=== PATIENT | female | born 2000 | race Caucasian/White ===

== ENCOUNTER 2022-08-17 21:47 | Emergency (ER) | payer OTHER ==
[2022-08-17] MEDS ORDERED: SODIUM CHLORIDE 0.9% 1,000 ML IV STA (22:11)
[2022-08-17] MEDS ORDERED: ONDANSETRON 4 MG/2 ML VIAL IVP STA (22:11)
[2022-08-17] MEDS: SODIUM CHLORIDE 0.9% 1,000 ML IV ONE ×2 (22:19→22:52)
[2022-08-17 22:29] VITALS: TEMP 99.1
--- NOTE | 2022-08-17 22:29 | ED ---
General Adult HPI - General Chief complaint: Nausea/Vomiting/Diarrhea Stated complaint: 6 weeks with nausea Time Seen by Provider: 08/17/22 21:57 Source: patient Mode of arrival: ambulatory Limitations: no limitations - History of Present Illness Initial comments: Patient is a 21-year-old female currently 6 weeks presenting with chief complaint of nausea. Patient states that she has had constant nausea for several days. She denies any pelvic pain or vaginal bleeding. No dysuria or hematuria. No fevers or chills. - Related Data Previous Rx's Medication Instructions Recorded Ondansetron Odt [Zofran Odt] 4 mg PO Q8HR PRN #30 tab 08/17/22 Allergies Allergy/AdvReac Type Severity Reaction Status Date / Time No Known Allergies Allergy Verified 08/17/22 21:55 Review of Systems ROS Statement: Those systems with pertinent positive or pertinent negative responses have been documented in the HPI. ROS Other: All systems not noted in ROS Statement are negative. Past Medical History Additional Past Medical History / Comment(s): IBS History of Any Multi-Drug Resistant Organisms: None Reported Past Surgical History: No Surgical Hx Reported Past Psychological History: Anxiety, Depression, PTSD Smoking Status: Never smoker Past Alcohol Use History: None Reported Past Drug Use History: None Reported General Exam Limitations: no limitations General appearance: alert, in no apparent distress Head exam: Present: atraumatic, normocephalic, normal inspection Eye exam: Present: normal appearance, EOMI. Absent: scleral icterus, periorbital swelling Neck exam: Present: normal inspection, full ROM Respiratory exam: Present: normal lung sounds bilaterally. Absent: respiratory distress, wheezes, rales, rhonchi, stridor Cardiovascular Exam: Present: regular rate, normal rhythm, normal heart sounds. Absent: systolic murmur, diastolic murmur, rubs, gallop, clicks Neurological exam: Present: alert, oriented X3, CN II-XII intact Psychiatric exam: Present: normal affect, normal mood Skin exam: Present: warm, dry, intact, normal color. Absent: rash Course Vital Signs 08/17/22 08/17/22 08/17/22 21:53 22:25 23:40 Temperature 99.6 F 99.1 F Pulse Rate 84 84 80 Respiratory 18 18 16 Rate Blood Pressure 136/81 118/69 120/79 O2 Sat by Pulse 97 99 98 Oximetry Medical Decision Making - Medical Decision Making Was pt. sent in by a medical professional or institution (CYRUS Melendez, VEHICLE INSURANCE AGENT, urgent care, hospital, or [facility]...) When possible be specific @ -[No] Did you speak to anyone other than the patient for history (EMS, parent, family, police, friend...)? What history was obtained from this source @ -[No] Did you review nursing and triage notes (agree or disagree)? Why? @ -[I reviewed and agree with nursing and triage notes] Were old charts reviewed (outside hosp., previous admission, EMS record, old EKG, old radiological studies, urgent care reports/EKG's, [facility] records)? Report findings @ -[No old charts were reviewed] Differential Diagnosis (chest pain, altered mental status, abdominal pain women, abdominal pain men, vaginal bleeding, weakness, fever, dyspnea, syncope, headache, dizziness, GI bleed, back pain, seizure, CVA, palpatations, mental health, musculoskeletal)? @ -Differential includes nausea and vomiting in , cholelithiasis, UTI, appendicitis, this is not an all inclusive last EKG interpreted by me (3pts min.). @ -[As above] X-rays interpreted by me (1pt min.). @ -[None done] CT interpreted by me (1pt min.). @ -[None done] U/S interpreted by me (1pt. min.). @ -[None done] What testing was considered but not performed or refused? (CT, X-rays, U/S, labs)? Why? @ -[None] What meds were considered but not given or refused? Why? @ -[None] Did you discuss the management of the patient with other professionals (professionals i.e. CYRUS Melendez, VEHICLE INSURANCE AGENT, lab, RT, psych nurse, social science instructor, room service associate, teacher, branch officer, welfare case worker)? Give summary @ -[No] Was smoking cessation discussed for >3mins.? @ -[No] Was critical care preformed (if so, how long)? @ -[No] Were there social determinants of health that impacted care today? How? (Homelessness, low income, unemployed, alcoholism, drug addiction, transportation, low edu. Level, literacy, decrease access to med. care, half-way, rehab)? @ -[No] Was there de-escalation of care discussed even if they declined (Discuss DNR or withdrawal of care, Hospice)? DNR status @ -[No] What co-morbidities impacted this encounter? (DM, HTN, Smoking, COPD, CAD, Cancer, CVA, ARF, Chemo, Hep., AIDS, mental health diagnosis, sleep apnea, morbid obesity)? @ -[None] Was patient admitted / discharged? Hospital course, mention meds given and route, prescriptions, significant lab abnormalities, going to OR and other pertinent info. @ -21-year-old female currently 6 weeks presenting with chief complaint of nausea. Patient has had small amount of vomiting. No abdominal pain or vaginal bleeding. She is given Zofran and IV fluids. She reports improvement in her symptoms. Urine shows no evidence of infectious process, sent for culture. Follow-up with OB. Report back to ER with any new or worsening symptoms. Discussed return parameters and answered all questions. Patient conveyed verbal understanding and agreed to the plan. I discussed this case in detail with my attending Dr. Lopez Undiagnosed new problem with uncertain prognosis? @ -[No] Drug Therapy requiring intensive monitoring for toxicity (Heparin, Nitro, Insulin, Cardizem)? @ -[No] Were any procedures done? @ -[No] Diagnosis/symptom? @ -Nausea and vomiting in Acute, or Chronic, or Acute on Chronic? @ -Acute Uncomplicated (without systemic symptoms) or Complicated (systemic symptoms)? @ -Uncomplicated Side effects of treatment? @ -[No] Exacerbation, Progression, or Severe Exacerbation? @ -[No] Poses a threat to life or bodily function? How? (Chest pain, [place], [place], pneumonia, PE, COPD, DKA, ARF, appy, cholecystitis, CVA, Diverticulitis, Homicidal, Suicidal, threat to staff... and all critical care pts) @ -[No] - Lab Data Lab Results 08/17/22 Range/Units 22:15 Urine Color Light Yellow Urine Appearance Clear (Clear) Urine pH 6.5 (5.0-8.0) Ur Specific [place] 1.005 (1.001-1.035) Urine Protein Negative (Negative) Urine Glucose (UA) Negative (Negative) Urine Ketones Negative (Negative) Urine Blood Negative (Negative) Urine Nitrite Negative (Negative) Urine Bilirubin Negative (Negative) Urine Urobilinogen <2.0 (<2.0) mg/dL Ur Leukocyte Esterase Negative (Negative) Disposition Clinical Impression: Nausea/vomiting in Disposition: HOME SELF-CARE Condition: Good Instructions (If sedation given, give patient instructions): Nausea and Vomiting in (ED) Additional Instructions: Follow-up with MOLECULAR PHYSICIST. Report back to ER with any new or worsening symptoms. Take medication as prescribed. You may take [id number] Unisom and vitamin B6 to help treat your nausea. Do not take Unisom before driving or operating heavy machinery. Prescriptions: Ondansetron Odt [Zofran Odt] 4 mg PO Q8HR PRN #30 tab PRN Reason: Nausea Is patient prescribed a controlled substance at d/c from ED?: No Referrals: Dolly Randhawa MD [Primary Care Provider] - 1-2 days Edward Kam MD [STAFF PHYSICIAN] - 1-2 days Time of Disposition: 23:07
[2022-08-17 22:46] LABS: Appearance,Urine Clear (Clear); Bilirubin,Urine Negative (Negative); Blood,Urine Negative (Negative); Color,Urine Light Yellow; Glucose,Urine (UA) Negative (Negative); Ketones,Urine Negative (Negative); Leukocyte Esterase,Urine Negative (Negative); Nitrite,Urine Negative (Negative); PH, Urine 6.5 (5.0-8.0); Protein,Urine Negative (Negative); Specific Gravity,Urine 1.005 (1.001-1.035); Urobilinogen,Urine <2.0 mg/dL (<2.0)
[2022-08-17] MEDS ORDERED: METOCLOPRAMIDE 5 MG/ML 2 ML VIAL IVP STA (23:05)
[2022-08-18 00:16] VITALS: BP 120/79; PULSE 80; RESP 16
== END 2022-08-17 23:40 | disposition home or self-care (01) ==
LOC: EC 21:47
DX: O21.9 Vomiting of pregnancy, unspecified (principal); Z86.59 Personal history of other mental and behavioral disorders; Z3A.01 Less than 8 weeks gestation of pregnancy
CPT/HCPCS: 99284 ×2; 96374 ×2; 96375 ×2; 96361 ×3; 81003; J2765; J2405

== ENCOUNTER 2022-08-23 10:46 | Emergency (ER) | payer OTHER ==
[2022-08-23 11:03] VITALS: RESP 18; TEMP 98.6
[2022-08-23] MEDS ORDERED: diphenhydrAMINE 50 MG/ML 1 ML VIAL IVP STA (11:20)
[2022-08-23] MEDS ORDERED: PYRIDOXINE 100 MG/ML 1 ML VIAL IVP ONE (11:20)
[2022-08-23] MEDS ORDERED: ONDANSETRON 4 MG/2 ML VIAL IVP STA (11:20)
[2022-08-23] MEDS ORDERED: SODIUM CHLORIDE 0.9% 2,000 ML IV STA (11:20)
[2022-08-23 11:42] VITALS: BP 114/81; PULSE 114
[2022-08-23 11:48] LABS: Basophils # (A) 0.1 k/uL (0-0.2); Basophils % (A) 0 %; Eosinophils # (A) 0.2 k/uL (0-0.7); Eosinophils % (A) 1 %; HCT 47.5 % (34.0-46.0); HGB 15.9 gm/dL (11.4-16.0); Lymphocytes # (A) 1.8 k/uL (1.0-4.8); Lymphocytes % (A) 15 %; MCH 28.5 pg (25.0-35.0); MCHC 33.5 g/dL (31.0-37.0); MCV 85.1 fL (80.0-100.0); Mean Platelet Volume 8.2; Monocytes # (A) 0.5 k/uL (0-1.0); Monocytes % (A) 5 %; Neutrophils # (A) 9.3 k/uL (1.3-7.7); Neutrophils % (A) 78 %; Platelet Count 340 k/uL (150-450); RBC 5.59 m/uL (3.80-5.40); RDW 13.4 % (11.5-15.5); WBC 11.9 k/uL (4.0-11.0)
--- NOTE | 2022-08-23 11:52 | ED ---
Nausea/Vomiting/Diarrhea HPI - General Chief complaint: Nausea/Vomiting/Diarrhea Stated complaint: 7 WEEKS PREG, Nausea Time Seen by Provider: 08/23/22 11:09 Source: patient, RN notes reviewed Mode of arrival: ambulatory Limitations: no limitations - History of Present Illness Initial comments: This is a 21-year-old female who presents to the emergency department for nausea and vomiting in . Patient is and approximately 7 weeks . She was evaluated here 6 days ago for the same complaint. She was treated with Reglan and Zofran when she was here, which she states were only moderately effective. She was discharged with a prescription for Zofran, however she believes that she has gotten worse. She is unable to keep down water at this point despite taking the Zofran. Denies any abdominal pain or vaginal bleeding. She does not currently have an [facility]. Denies any fevers, chills, sore throat, cough, dyspnea, chest pain, palpitations, abdominal pain, diarrhea, back pain, or headaches. MD complaint: nausea, vomiting - Related Data Previous Rx's Medication Instructions Recorded Ondansetron Odt [Zofran Odt] 4 mg PO Q8HR PRN #30 tab 08/17/22 Doxylamine Succinate/Vit B6 1 each PO TID PRN #30 tab 08/23/22 [Doxylamine-Pyridoxine 10-10 mg] Metoclopramide [Reglan] 10 mg PO Q6H PRN #30 tab 08/23/22 Allergies Allergy/AdvReac Type Severity Reaction Status Date / Time No Known Allergies Allergy Verified 08/23/22 12:40 Review of Systems ROS Statement: Those systems with pertinent positive or pertinent negative responses have been documented in the HPI. ROS Other: All systems not noted in ROS Statement are negative. Past Medical History Additional Past Medical History / Comment(s): IBS History of Any Multi-Drug Resistant Organisms: None Reported Past Surgical History: No Surgical Hx Reported Past Psychological History: Anxiety, Depression, PTSD Smoking Status: Current every day smoker Past Alcohol Use History: None Reported Past Drug Use History: None Reported General Exam Limitations: no limitations General appearance: alert, in no apparent distress Head exam: Present: atraumatic, normocephalic, normal inspection Respiratory exam: Present: normal lung sounds bilaterally. Absent: respiratory distress, wheezes, rales, rhonchi, stridor Cardiovascular Exam: Present: regular rate, normal rhythm, normal heart sounds. Absent: systolic murmur, diastolic murmur, rubs, gallop, clicks Neurological exam: Present: alert, oriented X3, CN II-XII intact Psychiatric exam: Present: normal affect, normal mood Skin exam: Present: warm, dry, intact, normal color. Absent: rash Course Vital Signs 08/23/22 08/23/22 11:00 11:42 Temperature 98.6 F Pulse Rate 91 114 H Respiratory 18 18 Rate Blood Pressure 130/83 114/81 O2 Sat by Pulse 99 100 Oximetry Medical Decision Making - Medical Decision Making This is a 21-year-old female who presents to the emergency department for nausea and vomiting in . Was pt. sent in by a medical professional or institution? @ -No Did you speak to anyone other than the patient for history? @ -No Did you review nursing and triage notes? @ -Yes, and I agree, it is accurate with regards to the patient's symptoms. Were old charts reviewed? @ -No Differential Diagnosis? @ -Differential Nausea and Vomiting: Gastroenteritis, hyperemesis gravidarum, morning sickness, cholecystitis, appendicitis, pancreatitis, migraine, benign positional vertigo, food borne illness, pyelonephritis, irritable bowel syndrome, influenza, Covid, GERD, incarcerated hernia, intestinal obstruction, this is not meant to be an all- inclusive list. EKG interpreted by me (3pts min.)? @ -Not obtained X-rays interpreted by me (1pt min.)? @ -Not obtained CT interpreted by me (1pt min.)? @ -Not obtained U/S interpreted by me (1pt. min.)? @ -Not obtained What testing was considered but not performed? (CT, X-rays, U/S, labs)? Why? @ -None What meds were considered but not given? Why? @ -None Did you discuss the management of the patient with other professionals? @ -No Did you reconcile home meds? @ -No Was smoking cessation discussed for >3mins.? @ -No Was critical care preformed (if so, how long)? @ -No Were there social determinants of health that impacted care today? How? (Homelessness, low income, unemployed, alcoholism, drug addiction, transpo rtation, low edu. Level, literacy, decrease access to med. care, senior care, rehab)? @ -No Was there de-escalation of care discussed even if they declined? (Discuss DNR or withdrawal of care, Hospice)? @ -No What co-morbidities impacted this encounter? (DM, HTN, Smoking, COPD, CAD, Cancer, CVA, Hep., AIDS, mental health diagnosis, sleep apnea, morbid obesity)? @ - Was patient admitted / discharged? @ -Discharged. Lab work obtained and found to be nonactionable. Urinalysis negative for signs of infection. She was initially given a 2 L bolus of IV fluids, Zofran, Benadryl, and vitamin B6. She did feel much better overall, other than mild residual nausea. She was subsequently given a dose of Reglan. Afterwards, she was able to eat crackers and drink water without difficulty and felt stable for discharge home. She does still have Zofran at home. She was also given prescriptions for Reglan and Diclegis. Advised she start with the Diclegis, and if that is not effective, she can alternate with the Reglan and Zofran if needed. She is instructed to slowly advance her diet as tolerated and remain well-hydrated. We discussed that Reglan and Zofran are category B medications in , and the patient expresses understanding and wishes to proceed. Information for [facility] follow-up provided as well. Advised to contact them for ongoing obstetrical management. Undiagnosed new problem with uncertain prognosis? @ -None Drug Therapy requiring intensive monitoring for toxicity (Heparin, Nitro, Insulin, Cardizem)? @ -None Were any procedures done? @ -None Diagnosis/symptom? @ -Nausea and vomiting in Acute, or Chronic, or Acute on Chronic? @ -Acute Uncomplicated (without systemic symptoms) or Complicated (systemic symptoms)? @ -Uncomplicated Side effects of treatment? @ -None Exacerbation, Progression, or Severe Exacerbation] @ -Not applicable Poses a threat to life or bodily function? @ -No Return precautions reviewed in depth, the patient is instructed to return to the emergency department with any new, worsening, or concerning symptoms. Patient verbalized understanding. This case was discussed in detail with the attending ED physician, Dr. Upton. Presentation, findings, and treatment plan discussed in detail as well. - Lab Data Result diagrams: 08/23/22 11:37 08/23/22 11:37 Lab Results 08/23/22 08/23/22 08/23/22 Range/Units 11:37 11:37 11:37 WBC 11.9 H (4.0-11.0) k/uL RBC 5.59 H (3.80-5.40) m/uL Hgb 15.9 (11.4-16.0) gm/dL Hct 47.5 H (34.0-46.0) % MCV 85.1 (80.0-100.0) fL MCH 28.5 (25.0-35.0) pg MCHC 33.5 (31.0-37.0) g/dL RDW 13.4 (11.5-15.5) % Plt Count 340 (150-450) k/uL MPV 8.2 Neutrophils % 78 % Lymphocytes % 15 % Monocytes % 5 % Eosinophils % 1 % Basophils % 0 % Neutrophils # 9.3 H (1.3-7.7) k/uL Lymphocytes # 1.8 (1.0-4.8) k/uL Monocytes # 0.5 (0-1.0) k/uL Eosinophils # 0.2 (0-0.7) k/uL Basophils # 0.1 (0-0.2) k/uL Sodium 139 (137-145) mmol/L Potassium 3.9 (3.5-5.1) mmol/L Chloride 101 (98-107) mmol/L Carbon Dioxide 22 (22-30) mmol/L Anion Gap 16 mmol/L BUN 9 (7-17) mg/dL Creatinine 0.54 (0.52-1.04) mg/dL Est GFR (CKD-EPI)AfAm >90 (>60 ml/min/1.73 sqM) Est GFR (CKD-EPI)NonAf >90 (>60 ml/min/1.73 sqM) Glucose 96 (74-99) mg/dL Calcium 10.5 H (8.4-10.2) mg/dL Total Bilirubin 0.6 (0.2-1.3) mg/dL AST 33 (14-36) U/L ALT 39 H (4-34) U/L Alkaline Phosphatase 91 (38-126) U/L Total Protein 9.8 H (6.3-8.2) g/dL Albumin 5.4 H (3.5-5.0) g/dL TSH 1.470 (0.465-4.680) mIU/L HCG, Quant 28007.2 mIU/mL Urine Color Yellow Urine Appearance Cloudy H (Clear) Urine pH 6.5 (5.0-8.0) Ur Specific [place] 1.036 H (1.001-1.035) Urine Protein 1+ H (Negative) Urine Glucose (UA) Negative (Negative) Urine Ketones 4+ H (Negative) Urine Blood Negative (Negative) Urine Nitrite Negative (Negative) Urine Bilirubin 1+ H (Negative) Urine Urobilinogen 4.0 (<2.0) mg/dL Ur Leukocyte Esterase Small H (Negative) Urine WBC 3 (0-5) /hpf Ur Squamous Epith Cells 13 H (0-4) /hpf Calcium Oxalate Crystal Rare H (None) /hpf Amorphous Sediment Rare H (None) /hpf Urine Bacteria Rare H (None) /hpf Urine Mucus Moderate H (None) /hpf Disposition Clinical Impression: Nausea and vomiting during Disposition: HOME SELF-CARE Instructions (If sedation given, give patient instructions): Nausea and Vomiting in (ED) Additional Instructions: Return to the emergency department with any new, worsening, or concerning symptoms. You can alternate with the Reglan and the Zofran that you have at home for nausea and vomiting. You can take the doxylamine pyridoxine up to 3 times daily as needed for nausea and vomiting. Start with 2 tablets at night, if symptoms persist after 2 days, increase dosage to 1 tablet every morning and 2 tablets at night. You may further increase the dose if needed to 1 tablet in the morning, 1 tablet in the mid to afternoon, and 2 tablets at night, with a maximum of 4 tablets each day. Take this on an empty stomach. If it is too expensive at the pharmacy, you can purchases [id number] vitamin B6 and Unisom for the same effect. Slowly advance your diet as tolerated and remain well-hydrated. You can try contacting the [facility] offices listed below on your own to see if you can become established for ongoing OB management, you may not need a referral from your primary care provider. Follow up with your primary care provider in 1-2 days. Prescriptions: Doxylamine Succinate/Vit B6 [Doxylamine-Pyridoxine 10-10 mg] 1 each PO TID PRN #30 tab PRN Reason: Nausea And Vomiting Metoclopramide [Reglan] 10 mg PO Q6H PRN #30 tab PRN Reason: Nausea And Vomiting Is patient prescribed a controlled substance at d/c from ED?: No Referrals: Dolly Randhawa MD [Primary Care Provider] - 1-2 days Carrie Velázquez MD [STAFF PHYSICIAN] - 1-2 days Roshni Osorio DO [Doctor of Osteopathic Medicine] - 1-2 days
[2022-08-23 12:02] LABS: ALT 39 U/L (4-34); AST 33 U/L (14-36); African American GFR (CKD) >90 (>60 ml/min/1.73 sqM); Albumin 5.4 g/dL (3.5-5.0); Alkaline Phosphatase 91 U/L (38-126); Anion Gap 16 mmol/L; Blood Urea Nitrogen 9 mg/dL (7-17); Calcium 10.5 mg/dL (8.4-10.2); Carbon Dioxide 22 mmol/L (22-30); Chloride 101 mmol/L (98-107); Glucose 96 mg/dL (74-99); Non-African American GFR(CKD) >90 (>60 ml/min/1.73 sqM); Potassium 3.9 mmol/L (3.5-5.1); Sodium 139 mmol/L (137-145); Total Bilirubin 0.6 mg/dL (0.2-1.3); Total Protein 9.8 g/dL (6.3-8.2)
[2022-08-23] MEDS ORDERED: FAMOTIDINE 20 MG/2 ML VIAL IV STA (12:22)
[2022-08-23] MEDS ORDERED: METOCLOPRAMIDE 5 MG/ML 2 ML VIAL IVP STA (12:22)
[2022-08-23 12:42] LABS: Amorphous Sediment,Urine Rare /hpf; Appearance,Urine Cloudy (Clear); Bacteria,Urine Rare /hpf; Bilirubin,Urine 1+ (Negative); Blood,Urine Negative (Negative); Calcium Oxalate Crystals,Urine Rare /hpf; Color,Urine Yellow; Glucose,Urine (UA) Negative (Negative); Ketones,Urine 4+ (Negative); Leukocyte Esterase,Urine Small (Negative); Mucus,Urine Moderate /hpf; Nitrite,Urine Negative (Negative); PH, Urine 6.5 (5.0-8.0); Protein,Urine 1+ (Negative); Specific Gravity,Urine 1.036 (1.001-1.035); Squamous Epithelial Cell,Urine 13 /hpf (0-4); WBC,Urine 3 /hpf (0-5)
[2022-08-23 13:14] LABS: HCG,Quantitative Serum 89249.2 mIU/mL
== END 2022-08-23 15:37 | disposition home or self-care (01) ==
LOC: EC 10:46
DX: O21.9 Vomiting of pregnancy, unspecified (principal); O99.891 Other specified diseases and conditions complicating pregnancy; O99.331 Smoking (tobacco) complicating pregnancy, first trimester; K58.0 Irritable bowel syndrome with diarrhea; F17.200 Nicotine dependence, unspecified, uncomplicated; Z3A.01 Less than 8 weeks gestation of pregnancy
CPT/HCPCS: 36415; 80053; 84443; 85025; 81001; 84702; 99284; 96374; 96375 ×3; 96361 ×4; J1200; J3415; J2765; J2405

== ENCOUNTER → 2022-09-20 | Outpatient (CLI) | payer OTHER ==
--- NOTE | 2022-09-20 16:27 | US ---
EXAMINATION TYPE: Transabdominal DATE OF EXAM: 09/20/2022 3:05 PM COMPARISON: NONE CLINICAL INDICATION: Female, 21 years old with history of Z36.89 SCREENING; . Viabili ty. EXAM PERFORMED: Transabdominal (TA) EXAM MEASUREMENTS: GESTATIONAL AGE / DATING Physician Established: (11 weeks/1 day) EDC: 04/10/2023 Dates by LMP: Unknown Dates by First Scan: This is first scan at this facility, patient states last outside ultrasound est ablished due date was 04/10/2023 as shown above. Dates by Current Scan for: (11 weeks/4 days) EDC: 04/07/2023 MATERNAL ANATOMY Uterus: 14.3 x 9.0 x 5.3 cm Right Ovary: 3.4 x 2.7 x 1.9 cm Left Ovary: 3.6 x 2.0 x 2.0 cm Post CDS / Adnexa: Appear wnl Presence of free fluid: None seen Presence of corpus luteal cyst: Not seen Presence of subchorionic bleed: Not seen GESTATION / SURVEY CRL: 41.16 mm (11 weeks/4 days) Yolk Sac (normal less than 6mm): Not seen Heart Rate: 152 bpm Rhythm: Normal IUP: Viable IUP Nuchal Translucency 10-14wks (normal less than 3mm): Not well seen Date of LMP: Unknown Beta HcG (if available): Not available. IMPRESSION: Single live intrauterine gestation ultrasound age 11 weeks 4 days.
== END | disposition home or self-care (01) ==
LOC: RADUSWWP 14:30
PROVIDERS: ATTEND Obstetrics & Gynecology
DX: Z36.89 Encounter for other specified antenatal screening (principal); Z3A.11 11 weeks gestation of pregnancy
CPT/HCPCS: 76801

== ENCOUNTER 2023-04-05 06:15 | Inpatient (IN) | payer OTHER ==
--- NOTE | 2023-04-04 16:43 | P.HPOB ---
History of Present Illness H&P Date: 04/04/23 Chief Complaint: Induction of labor This is a 22-year-old female 1 para 0 with an estimated date of confinement of April 07, 2023, estimated gestational age of 39-5/7 weeks, who presents to labor and delivery for induction of labor. She complains of frequent contractions and pressure. She also complains of some tachycardia with shortness of breath that does resolve within about 10 minutes. Her has otherwise been essentially uncomplicated. labs: Hemoglobin-14.2 Rubella-immune Toxoplasma-negative RPR-nonreactive HIV-nonreactive Hepatitis C antibody-nonreactive Random glucose-86 Antibody screen-negative Hepatitis B surface antigen-negative Blood type-O+ GC/chlamydia/trichomonas-negative Quad screen-negative 1 hour Glucola-140 3-hour Glucola-within normal limits Group B streptococcus-negative Obstetrical history: G1, P0. Gynecologic history: No history of sexually transmitted diseases. Social history: Single. Unemployed. Review of Systems Constitutional: Denies chills, Denies fever Eyes: denies blurred vision, denies pain Ears, nose, mouth and throat: Denies headache, Denies sore throat Cardiovascular: Reports rapid heart beat, Reports shortness of breath, Denies chest pain Respiratory: Denies cough Gastrointestinal: Reports abdominal pain (Irregular contractions) Genitourinary: Reports pelvic pain, Reports Musculoskeletal: Reports low back pain Integumentary: Denies pruritus, Denies rash Neurological: Denies numbness, Denies weakness Psychiatric: Reports anxiety, Reports depression Past Medical History Additional Past Medical History / Comment(s): IBS History of Any Multi-Drug Resistant Organisms: None Reported Past Surgical History: No Surgical Hx Reported Past Anesthesia/Blood Transfusion Reactions: No Reported Reaction Past Psychological History: Anxiety, Depression, PTSD Smoking Status: Current every day smoker Past Alcohol Use History: None Reported Past Drug Use History: None Reported - Past Family History Father Family Medical History: Hypertension Medications and Allergies Home Medications Medication Instructions Recorded Confirmed Type [id number]/Iron/FA/O3/Dha/Epa/Fish 1 each PO 04/04/23 History [ Multi-Dha Softgel] Allergies Allergy/AdvReac Type Severity Reaction Status Date / Time No Known Allergies Allergy Verified 08/23/22 12:40 Exam Osteopathic Statement: *. No significant issues noted on an osteopathic structural exam other than those noted in the History and Physical/Consult. HEENT: Within normal limits Heart: Regular rate and rhythm Lungs: Clear to auscultation bilaterally Abdomen: Cervix: 1.5 cm / 60%/-2 heart tones: 140s by Doppler Extremities: Negative Homans Assessment and Plan (1) 39 weeks gestation of Status: Acute Code(s): Z3A.39 - 39 WEEKS GESTATION OF SNOMED Code(s): 63706212 Plan: Admission for oxytocin induction of labor. Expectant management. Epidural anesthesia if desired.
[2023-04-05] MEDS ORDERED: TRANEXAMIC 1,000 MG/100ML-NACL 1,000 MG in EMPTY BAG 1 BAG IV PRN (06:40)
[2023-04-05] MEDS ORDERED: LIDOCAINE 1% (10MG/ML) FOR IV START INTRADERMA PRN (06:40)
[2023-04-05] MEDS ORDERED: OXYTOCIN 10 UNIT/ML 1 ML VIAL IM PRN (06:40)
[2023-04-05] MEDS ORDERED: miSOPROStoL 200 MCG TAB PO PRN (06:40)
[2023-04-05] MEDS ORDERED: TERBUTALINE 1 MG/ML VIAL SQ PRN (06:40)
[2023-04-05] MEDS ORDERED: CARBOPROST TROMETHAMINE 250 MCG/ML 1 ML AMP IM PRN (06:40)
[2023-04-05] MEDS ORDERED: OXYTOCIN 30 UNITS/500 ML NS 30 UNIT in SALINE 1 500ML.BAG IV SCH (06:40)
[2023-04-05] MEDS ORDERED: LIDOCAINE 0.5% (PF) 5 MG/ML (50 ML SDV) SQ PRN (06:40)
[2023-04-05] MEDS ORDERED: METHYLERGONOVINE 0.2 MG/ML 1 ML AMP IM PRN (06:40)
[2023-04-05] MEDS: LACTATED RINGERS 1,000 ML IV SCH ×2 (07:29→18:23)
[2023-04-05 07:33] LABS: Basophils % (A) 1 %; Eosinophils # (A) 0.1 k/uL (0-0.7); Eosinophils % (A) 1 %; HCT 34.9 % (34.0-46.0); HGB 11.8 gm/dL (11.4-16.0); Lymphocytes # (A) 1.4 k/uL (1.0-4.8); Lymphocytes % (A) 19 %; MCHC 33.8 g/dL (31.0-37.0); MCV 85.8 fL (80.0-100.0); Mean Platelet Volume 8.8; Monocytes # (A) 0.5 k/uL (0-1.0); Monocytes % (A) 7 %; Neutrophils # (A) 5.2 k/uL (1.3-7.7); Neutrophils % (A) 71 %; Platelet Count 264 k/uL (150-450); RBC 4.07 m/uL (3.80-5.40); RDW 14.9 % (11.5-15.5); WBC 7.3 k/uL (4.0-11.0)
[2023-04-05] MEDS ORDERED: CITRIC ACID-SODIUM CITRATE 15 ML CUP PO ONE (08:51)
[2023-04-05] MEDS ORDERED: LACTATED RINGERS 1,000 ML IV ONE (08:51)
[2023-04-05] MEDS ORDERED: ONDANSETRON 4 MG/2 ML VIAL ONE (09:04)
[2023-04-05] MEDS ORDERED: MORPHINE SULFATE (PF) 0.3 MG/0.3 ML SYR ONE (09:04)
[2023-04-05] MEDS ORDERED: KETOROLAC 15 MG/ML 1 ML VIAL ONE (09:04)
[2023-04-05] MEDS ORDERED: OXYTOCIN 30 UNITS/500 ML NS BAG IV ONE (09:04)
--- NOTE | 2023-04-05 09:49 | P.OP ---
Date of Procedure: 04/05/23 Preoperative Diagnosis: 1. Intrauterine at 39-5/7 weeks. 2. Compound presentation with nuchal hand. Postoperative Diagnosis: Same Procedure(s) Performed: Primary low transverse section Anesthesia: spinal (Duramorph) Surgeon: Adela Otto Panel Maker #1: Edward Kam Estimated Blood Loss (ml): 300 Pathology: none sent Condition: stable Disposition: floor Indications for Procedure: This is a 22-year-old female 1 para 0 at 39-5/7 weeks who presented for induction of labor. After checking her this morning, I was unable to completely palpate vertex presentation and therefore I did a bedside ultrasound. It did appear that the head was down but may be in a asynclitic lie. When I checked her again I could feel the head but I also felt fingers next to the head. She did rupture when I was checking her with clear fluid noted. I observed her for approximately 20 minutes and then rechecked her. I felt more hand on the second check and a loop of cord next to the head on the posterior side. This was not prolapsing however my concern for cord prolapse was high and therefore after patient centered huddle, we both decided to proceed with primary section due to compound presentation and concern for possible cord prolapse. I have discussed the risks, benefits, and alternative therapies for the above- mentioned procedure and for both sedation/anesthesia as well as necessary blood products administration, if indicated, as they pertain to this patient. The patient has indicated her understanding and acceptance of the risks and procedures discussed. Operative Findings: A viable female infant is noted in the occiput anterior lie with no nuchal cord noted. scores were 9 at 1 minute and 10 at 5 minutes and infant weight was 7 pounds 8 ounces. Normal uterus tubes and ovaries are noted. Description of Procedure: The patient is taken to the operating room where she is placed in the dorsal supine position with leftward tilt after spinal Duramorph anesthesia is given. She is prepped and draped in the normal sterile fashion. Abdominal skin retractor was also placed with straps above her shoulders. Skin was tested and found to be adequately anesthetized. A Pfannenstiel skin incision was made with a scalpel. A second knife was used to carry the incision down to the underlying layer of fascia. The fascia was nicked in the midline with a scalpel and then extended laterally bilaterally with Villanueva scissors. The anterior lip of the fascia was grasped with 2 Myke clamps and then dissected off the underlying rectus muscle in the midline with Villanueva scissors. The inferior aspect of the fascial incision was grasped with 2 Myke clamps and dissected off the underlying rectus muscle and the midline with Villanueva scissors. Next the periton eum layer was tented up with 2 hemostats and then entered sharply with the scalpel. The incision is extended superiorly and inferiorly with Metzenbaum scissors. Next a DeLee retractor is placed. The vesicouterine peritoneum is entered sharply with Metzenbaum scissors and extended laterally bilaterally with Metzenbaum scissors and then the bladder flap is pushed inferiorly. The lower uterine segment is incised in transverse fashion with the scalpel and then bluntly entered with a hemostat. Clear fluid is noted. The incision was then extended laterally bilaterally with 2 fingers. Next the infant's head is delivered through the incision. Nose and mouth are bulb suctioned. The remainder of the is easily delivered and placed on mother's abdomen. Cord is clamped and cut. is taken to warmer by nursing staff. Uterine fundus is gently massaged and placenta is delivered manually. Uterus is exteriorized and cleared of all clots and debris. Uterine incision is closed wi th 0 Vicryl suture in a running locked fashion. A second layer of 0 Vicryl suture is used in a running fashion for hemostasis. Once adequate hemostasis as assured, the vesicouterine peritoneum is reapproximated with 2-0 Vicryl suture in a running fashion. Posterior cul-de-sac is suctioned of all clots and debris. Uterus is returned to the abdomen. Incision is noted to be hemostatic. Peritoneal layer is closed with 0 Vicryl suture in a running fashion. Muscle layer is reapproximated with 0 Vicryl suture in interrupted fashion. Fascia layer is then closed with 0 PDS suture with 2 sutures meeting in the midline and the knots buried in either side and in the midline. The subcutaneous tissue was then closed with 2-0 Vicryl suture. Skin layer was then closed with david. All sponge and needle counts are correct. The patient is taken to recovery room in stable condition.
[2023-04-05] MEDS ORDERED: HYDROmorphone 1 MG/ML 1 ML SYRINGE IVP PRN (10:18)
[2023-04-05] MEDS ORDERED: NALOXONE 0.4 MG/ML 1 ML VIAL IV PRN (10:18)
[2023-04-05] MEDS ORDERED: LANOLIN CREAM 5 GM TUBE TOPICAL PRN (10:18)
[2023-04-05] MEDS ORDERED: diphenhydrAMINE 50 MG CAP PO PRN (10:18)
[2023-04-05] MEDS ORDERED: ZOLPIDEM 5 MG TAB PO PRN (10:18)
[2023-04-05] MEDS ORDERED: diphenhydrAMINE 50 MG/ML 1 ML VIAL IVP PRN ×2 (10:18)
[2023-04-05] MEDS ORDERED: ONDANSETRON 4 MG/2 ML VIAL IVP PRN (10:18)
[2023-04-05] MEDS ORDERED: SIMETHICONE 80 MG CHEWABLE PO PRN (10:18)
[2023-04-05] MEDS ORDERED: METOCLOPRAMIDE 5 MG/ML 2 ML VIAL IVP PRN (10:18)
[2023-04-05] MEDS ORDERED: HYDROmorphone 0.5 MG/0.5 ML SYRINGE IVP PRN (10:18)
[2023-04-05] MEDS ORDERED: diphenhydrAMINE 25 MG CAP PO PRN (10:18)
[2023-04-05] MEDS ORDERED: ACETAMINOPHEN IV (For NPO) 1,000 MG in EMPTY BAG 1 BAG IVPB PRN (12:00)
[2023-04-05] MEDS: ACETAMINOPHEN TAB 500 MG TAB PO SCH ×2 (12:21→18:23)
[2023-04-05] MEDS: KETOROLAC 15 MG/ML 1 ML VIAL IVP PRN ×2 (15:00→20:34)
[2023-04-05] MEDS: IBUPROFEN 600 MG TAB PO SCH ×2 (16:36→22:42)
[2023-04-05 17:34] LABS: Basophils % (A) 0 %; Eosinophils # (A) 0.1 k/uL (0-0.7); Eosinophils % (A) 0 %; HCT 31.8 % (34.0-46.0); HGB 10.6 gm/dL (11.4-16.0); Lymphocytes # (A) 1.6 k/uL (1.0-4.8); Lymphocytes % (A) 14 %; MCH 28.6 pg (25.0-35.0); MCHC 33.4 g/dL (31.0-37.0); MCV 85.7 fL (80.0-100.0); Mean Platelet Volume 9.3; Monocytes # (A) 0.7 k/uL (0-1.0); Monocytes % (A) 6 %; Neutrophils % (A) 78 %; Platelet Count 218 k/uL (150-450); RBC 3.71 m/uL (3.80-5.40); RDW 14.8 % (11.5-15.5); WBC 11.7 k/uL (4.0-11.0)
[2023-04-05 18:07] LABS: ALT 19 U/L (4-34); AST 31 U/L (14-36); African American GFR (CKD) >90 (>60 ml/min/1.73 sqM); Blood Urea Nitrogen 10 mg/dL (7-17); LDH 256 U/L (120-246); Non-African American GFR(CKD) >90 (>60 ml/min/1.73 sqM); Uric Acid 5.3 mg/dL (3.7-7.4)
[2023-04-05 19:31] LABS: Appearance,Urine Clear (Clear); Bilirubin,Urine Negative (Negative); Blood,Urine Negative (Negative); Color,Urine Light Yellow; Glucose,Urine (UA) Negative (Negative); Ketones,Urine Negative (Negative); Leukocyte Esterase,Urine Negative (Negative); Nitrite,Urine Negative (Negative); PH, Urine 7.5 (5.0-8.0); Protein,Urine Trace (Negative); Specific Gravity,Urine 1.018 (1.001-1.035); Urobilinogen,Urine <2.0 mg/dL (<2.0)
[2023-04-05 19:38] LABS: Creatinine,Urine Random 71.9 mg/dL; Protein/Creatinine Ratio,Urine 0.209
[2023-04-05 19:39] LABS: Creatinine,Urine Random 71.8 mg/dL
[2023-04-05] MEDS: SENNOSIDES-DOCUSATE SODIUM 1 EACH TAB PO SCH (20:13)
[2023-04-06] MEDS: ACETAMINOPHEN TAB 500 MG TAB PO SCH ×4 (00:25→22:03)
[2023-04-06] MEDS: LACTATED RINGERS 1,000 ML IV SCH (02:38)
[2023-04-06] MEDS: IBUPROFEN 600 MG TAB PO SCH ×3 (04:34→18:20)
[2023-04-06] MEDS: KETOROLAC 15 MG/ML 1 ML VIAL IVP PRN (04:39)
[2023-04-06 07:36] LABS: Basophils % (A) 1 %; Eosinophils # (A) 0.1 k/uL (0-0.7); Eosinophils % (A) 1 %; HCT 28.4 % (34.0-46.0); HGB 9.4 gm/dL (11.4-16.0); Lymphocytes # (A) 1.6 k/uL (1.0-4.8); Lymphocytes % (A) 20 %; MCH 28.4 pg (25.0-35.0); MCV 86.1 fL (80.0-100.0); Mean Platelet Volume 9.2; Monocytes # (A) 0.5 k/uL (0-1.0); Monocytes % (A) 6 %; Neutrophils # (A) 5.5 k/uL (1.3-7.7); Neutrophils % (A) 68 %; Platelet Count 185 k/uL (150-450); RDW 15.2 % (11.5-15.5)
[2023-04-06] MEDS: SENNOSIDES-DOCUSATE SODIUM 1 EACH TAB PO SCH ×2 (08:09→20:43)
--- NOTE | 2023-04-06 08:10 | P.PNOBGPC ---
Subjective - Subjective Principal diagnosis: Status post primary section postoperative day #1 Interval history: Patient is doing well. She is ambulating. She has not passed any flatus yet. She has just been able to urinate. Pain is fairly well-controlled at this time. She is working at breast-feeding. Lochia is decreasing. Patient reports: Reports appetite normal, Reports voiding normally, Reports pain well controlled, Reports ambulating normally (She did just. She is) : doing well, nursing well Objective - Vital Signs Latest vital signs: Vital Signs Temp Pulse Resp BP Pulse Ox 04/06/23 07:29 98.5 F 77 16 133/85 97 04/06/23 04:45 97.8 F 81 16 118/77 98 04/06/23 00:45 98.2 F 84 16 118/79 96 04/05/23 20:00 98.5 F 87 16 139/87 98 04/05/23 16:00 98.5 F 81 18 143/83 95 04/05/23 13:21 18 04/05/23 12:11 95 18 144/70 04/05/23 12:00 97.8 F 95 18 148/72 98 04/05/23 11:54 97.8 F 85 18 141/71 98 04/05/23 11:39 98.5 F 89 18 135/69 98 04/05/23 11:24 87 18 137/69 99 04/05/23 11:09 85 18 135/73 97 04/05/23 10:54 98.3 F 95 18 135/78 97 04/05/23 10:27 97.8 F 94 18 143/69 97 04/05/23 10:20 98.1 F 93 18 132/65 97 04/05/23 10:07 97.4 F L 99 18 121/60 97 04/05/23 09:54 97.0 F L 141 H 18 120/64 98 Intake and Output 04/05/23 04/06/23 04/06/23 22:59 06:59 14:59 Intake Total 500 Output Total 125 600 900 Balance -125 -100 -900 Intake: IV 500 Output: Urine 125 600 900 Uretheral (Donato) 75 600 Other: Voiding Method Toilet # Voids 0 # Bowel Movements 0 - Exam Extremities: Present: normal. Absent: tenderness, edema Abdomen: Present: normal appearance, soft (Positive bowel sounds x 4). Absent: distention, tenderness Incision: Present: normal, dry, intact. Absent: erythematous Uterus: Present: normal, firm. Absent: tenderness - Labs Labs: Abnormal Lab Results - Last 24 Hours (Table) 04/05/23 04/05/23 04/05/23 Range/Units 16:22 16:22 17:19 WBC 11.7 H (4.0-11.0) k/uL RBC 3.71 L (3.80-5.40) m/uL Hgb 10.6 L (11.4-16.0) gm/dL Hct 31.8 L (34.0-46.0) % Neutrophils # 9.0 H (1.3-7.7) k/uL Creatinine (0.52-1.04) mg/dL Lactate Dehydrogenase (120-246) U/L Urine Protein Trace H (Negative) U Random Total Protein 15 H (<12) mg/dL 04/05/23 04/06/23 Range/Units 17:19 07:04 WBC (4.0-11.0) k/uL RBC 3.30 L (3.80-5.40) m/uL Hgb 9.4 L (11.4-16.0) gm/dL Hct 28.4 L (34.0-46.0) % Neutrophils # (1.3-7.7) k/uL Creatinine 0.43 L (0.52-1.04) mg/dL Lactate Dehydrogenase 256 H (120-246) U/L Urine Protein (Negative) U Random Total Protein (<12) mg/dL Assessment and Plan Assessment: S/p primary low-transverse section postoperative day #1 (1) 39 weeks gestation of Current Visit: No Status: Acute Code(s): Z3A.39 - 39 WEEKS GESTATION OF SNOMED Code(s): 91646007 Plan: Continue with postoperative and care today. Will advance diet after flatus. Patient is encouraged to ambulate.
--- NOTE | 2023-04-06 08:35 | P.PN ---
Progress Note - Text Progress Note Date: 04/06/23 (650) Anesthesia Postop day 1 Subjective: Status Post section with Duramorph. Patient seen and examined. Doing well without complaint. VAS 5 out of 10. No nausea vomiting or pruritus. Denies fever. Gross lower extremity strength intact. Without apparent anesthetic complications. Objective: Vital signs reviewed Heart: Regular Rate Lungs: Good chest excursion Abdomen: Appears nondistended Assessment: Status post with Duramorph postop day 1 Plan: Continue current care with your medical management. Anticipated end of the duration of Duramorph section around time today. You may see increased pain needs around this time. This note was dictated using [employer] software. Please be advised there is a potential for misspellings or errors in hand rug braider.
[2023-04-07] MEDS: IBUPROFEN 600 MG TAB PO SCH ×4 (00:50→14:19)
[2023-04-07 01:07] VITALS: PULSE 80; RESP 16
[2023-04-07] MEDS: ACETAMINOPHEN TAB 500 MG TAB PO SCH ×2 (03:28→10:38)
[2023-04-07] MEDS: LACTATED RINGERS 1,000 ML IV SCH (05:04)
[2023-04-07] MEDS: SENNOSIDES-DOCUSATE SODIUM 1 EACH TAB PO SCH (07:51)
--- NOTE | 2023-04-07 08:43 | P.DS ---
Providers Date of admission: 04/05/23 06:24 Expected date of discharge: 04/07/23 Attending physician: Adela Otto Primary care physician: Stated None - Discharge Diagnosis(es) (1) 39 weeks gestation of Current Visit: No Status: Acute Hospital Course: This is a 22-year-old female 1 para 0 at 39-5/7 weeks who presented for induction of labor. Baby was noted to have a partial hand presentation with questionable nuchal cord next to the head after rupture of membranes with clear fluid noted. She therefore underwent a primary low-transverse section on 04/05/2023 and delivered a viable female with scores of 9 at 1 minute and 10 at 5 minutes and infant weight of 7 pounds 8 ounces. Her postoperative and courses were uncomplicated. Lochia is decreasing. Her pain is well-controlled. She is working at breast-feeding. Vital signs are stable. Abdomen is soft with fundus firm and nontender. Incision is clean dry and intact with david in place. Extremities show negative Homans. Impression is status post primary low-transverse section postoperative day #2. Plan is to discharge home today. Routine postoperative and instructions are given. She will be given prescription for ibuprofen. She has a breast pump at home. She is advised to call the office if she has any further questions or concerns prior to her appointment time. Falls Of Rough will be removed and Steri-Strips placed prior to discharge. Procedures: Primary low-transverse section Patient Condition at Discharge: Stable Plan - Discharge Summary New Discharge Prescriptions: New Ibuprofen [Motrin] 600 mg PO Q6H #60 tab No Action Vit No.179/Iron/Folic [ Tablet] 1 tab PO DAILY Discharge Medication List Vit No.179/Iron/Folic [ Tablet] 1 tab PO DAILY 04/05/23 [History] Ibuprofen [Motrin] 600 mg PO Q6H #60 tab 04/07/23 [Rx] Follow up Appointment(s)/Referral(s): Adela Otto DO [Doctor of Osteopathic Medicine] - 05/17/23 4:00 pm (Post Op Appointment 04-14-2023 at 1:30pm) Activity/Diet/Wound Care/Special Instructions: Instructions 1. Do not begin any exercise program for 3 weeks. 2. Do not resume sexual relations for 3 weeks or longer if uncomfortable. 3. You may take tub baths or showers at any time. 4. You may use tampons if desired after 3 weeks. 5. Keep the area of episiotomy (stitches) clean and dry. 6. If you are not nursing, wear a good fitting, supportive bra during the day and limit fluid intake for at least 1 week to prevent breast engorgement. 7. Call the office, [phone], within the next week to make appointment for your 6 week checkup if it has not already been made. 8. Report any of the following occurrences to the doctor promptly: a. Heavy, excessive bleeding b. Chills, fever c. Burning or frequency of urination d. Pain or redness and breasts if nursing e. Increasing pain or swelling in episiotomy (stitches). In addition to the above instructions, the following additional should be followed: 1. No heavy lifting or straining (exercising) until after 6 week checkup. 2. Keep abdominal incision clean and dry: You may wear a dressing if more comfortable. 3. Make office appointment for 10 days after going home or as instructed by her doctor. Discharge Disposition: HOME SELF-CARE
[2023-04-07 08:56] VITALS: BP 131/90; TEMP 98.6
== END 2023-04-07 15:15 | disposition home or self-care (01) | DRG 540 ==
LOC: 4FBP 06:24
PROVIDERS: ADMIT Obstetrics & Gynecology; ATTEND Obstetrics & Gynecology
DX: O32.6XX0 Maternal care for compound presentation, not applicable or unspecified (principal); O32.2XX0 Maternal care for transverse and oblique lie, not applicable or unspecified; O99.344 Other mental disorders complicating childbirth; O99.334 Smoking (tobacco) complicating childbirth; O69.81X0 Labor and delivery complicated by cord around neck, without compression, not applicable or unspecified; F43.10 Post-traumatic stress disorder, unspecified; F32.A Depression, unspecified; K58.9 Irritable bowel syndrome, unspecified; F17.200 Nicotine dependence, unspecified, uncomplicated; Z37.0 Single live birth; Z3A.39 39 weeks gestation of pregnancy; Z82.49 Family history of ischemic heart disease and other diseases of the circulatory system; Z28.311 Partially vaccinated for COVID-19
CPT/HCPCS: 81003; 82565; 82570; 83615; 84156; 84450; 84460; 84520; 84550; 85025; 86850; 86900; 86901